=== PATIENT | male | born 1980 | race Hispanic/Latino ===

== ENCOUNTER 2018-05-17 08:06 | Emergency (ER) | payer OTHER ==
[2018-05-17] MEDS ORDERED: KETOROLAC TROMETHAMINE 30MG/ML ONE (08:49)
[2018-05-17 08:56] LABS: BASOPHILS % (AUTO) 0.7 % (0.0-5.0); EOSINOPHILS % (AUTO) 0.3 % (0.0-8.0); HEMATOCRIT 43.3 % (42-54); LYMPHOCYTES % (AUTO) 12.4 % (21.0-51.0); MEAN CORPUSCULAR HEMOGLOBIN 29.5 pg (27.0-33.0); MEAN CORPUSCULAR HGB CONC 33.7 g/dL (32.0-36.0); MEAN CORPUSCULAR VOLUME 87.6 fL (79-99); MONOCYTES % (AUTO) 6.2 % (3.0-13.0); NEUTROPHILS % (AUTO) 80.4 % (40.0-77.0); NUCLEATED RED BLOOD CELLS 0.1 % (0.0-0.19); PLATELET COUNT (AUTO) 208 K/uL (130-400); RED BLOOD CELL COUNT(AUTO) 4.94 MIL/uL (4.50-6.20); RED CELL DISTRIBUTION WIDTH 13.6 % (11.0-15.5); WHITE BLOOD COUNT (AUTO) 9.9 K/uL (4.8-10.8)
[2018-05-17 09:03] LABS: CREATININE 1.3 mg/dL (0.5-1.5)
[2018-05-17 09:08] LABS: ALBUMIN 3.8 g/dL (3.5-5.0); BILIRUBIN,TOTAL 0.5 mg/dL (0.2-1.0); TOTAL PROTEIN, SERUM 7.5 g/dL (6.0-8.3)
[2018-05-17] MEDS ORDERED: CEFTRIAXONE SODIUM 1 GM ONE (09:46)
== END 2018-05-17 11:02 | disposition home or self-care (01) ==
LOC: EDH 08:06
DX: L03.115 Cellulitis of right lower limb (principal); Z72.0 Tobacco use
CPT/HCPCS: 36415; 80053; 85025; 93971; 96374; 96375; 99284; J0696; J1885

== ENCOUNTER 2018-12-20 14:23 | Emergency (ER) | payer OTHER ==
[2018-12-20] MEDS ORDERED: IBUPROFEN 600 MG TABLET ONE (15:06)
== END 2018-12-20 15:11 | disposition home or self-care (01) ==
LOC: EDH 14:23
DX: S90.32XA Contusion of left foot, initial encounter (principal); Z72.0 Tobacco use; W22.8XXA Striking against or struck by other objects, initial encounter; Y93.89 Activity, other specified; Y92.89 Other specified places as the place of occurrence of the external cause; Y99.8 Other external cause status
CPT/HCPCS: 73630